=== PATIENT | male | born 1955 | race Caucasian/White ===

== ENCOUNTER 2018-07-09 20:53 | Emergency (ER) | payer BC, MEDICARE ==
[~2018-07-09] VITALS: Ht 182.9 cm; Wt 90.7 kg
[2018-07-09 22:56] VITALS: BP 162/82
== END 2018-07-09 23:25 | disposition home or self-care (01) ==
LOC: ER 20:53
DX: L91.8 Other hypertrophic disorders of the skin (principal); L98.9 Disorder of the skin and subcutaneous tissue, unspecified; F17.210 Nicotine dependence, cigarettes, uncomplicated